=== PATIENT | female | born 1955 | race Caucasian/White ===

== ENCOUNTER → 2021-05-09 | Outpatient (CLI) | payer MEDICARE ==
[~2021-05-09] MED LIST: FLAGYL500 MG PO; LEVAQUIN750 MG PO; NORCO 5-325 TA1 EACH PO; ZOFRAN4 MG PO
== END ==
LOC: HEART 5 14:30
DX: R00.2 Palpitations (principal)

== ENCOUNTER → 2021-11-14 | Outpatient (CLI) | payer MEDICARE ==
[~2021-11-14] MED LIST changes: +CALCIUM 600 +1 EAC4 PO; +ESTRADIOL1 EACH TOP; +FLUTICASONE SPRAY; +IRBESARTAN150 MG PO; +LORATADINE10 MG PO; +VITAMIN D21250 MCG PO
[2021-11-14 11:23] LABS: HEMOGLOBIN 15.7 gm/dl (12.3-15.3); RED BLOOD COUNT 4.9 M/UL (4.00-5.10); WHITE BLOOD COUNT 9.2 K/UL (4.5-11.0)
[2021-11-14 11:47] LABS: BUN/CREATININE RATIO 18 (0-10)
== END ==
LOC: OPSV2 10:00 → EDSTATUS 10:00 → OPSV2 10:39
PROVIDERS: Orthopaedic Surgery
DX: Z01.818 Encounter for other preprocedural examination (principal); M17.11 Unilateral primary osteoarthritis, right knee; R94.31 Abnormal electrocardiogram [ECG] [EKG]; I45.10 Unspecified right bundle-branch block
CPT/HCPCS: 36415; 71046; 80048; 85025; 93005

== ENCOUNTER → 2022-01-03 | Outpatient (CLI) | payer MEDICARE, OTHER ==
[~2022-01-03] MED LIST changes: +ALBUTEROL2.5 MG/3 M INH; +[UNRECOGNIZED DRUG - OTHER] PO
== END ==
LOC: OPSV2 12-27 12:30 → EDSTATUS 12:30 → OPSV2 12:43
DX: Z01.818 Encounter for other preprocedural examination (principal); M17.11 Unilateral primary osteoarthritis, right knee; J84.9 Interstitial pulmonary disease, unspecified
CPT/HCPCS: 71046